=== PATIENT | male | born 1945 | race Caucasian/White ===

== ENCOUNTER 2023-09-25 14:02 | Inpatient (IN) ==
[2023-09-25 15:15] LABS: Hematocrit 24.7 % (38-53); Hemoglobin 8.1 g/dL (13.2-16.3); Mean Corpuscular Hemoglobin 31.1 pg (27-33); Mean Corpuscular Hgb Conc 32.8 g/dL (31-36); Mean Corpuscular Volume 94.8 fL (80-97); Mean Platelet Volume 8.4 fL (7.5-11.2); Platelet Count 162 10^3/uL (150-450); Red Cell Distribution Width 18.4 % (12-17); White Blood Count 26.1 10^3/uL (3.6-10.2)
[2023-09-25 15:28] LABS: INR 1.03 (0.83-1.13)
[2023-09-25 16:13] LABS: ALT 15 U/L (7-52); AST 15 U/L (13-39); Albumin 3.6 g/dL (3.2-5.2); Albumin/Globulin Ratio 1.7 (1-3); Alkaline Phosphatase 86 U/L (35-149); Anion Gap 7 mmol/L (2-16); Blood Urea Nitrogen 48 mg/dL (6-24); C Reactive Protein < 1.00 mg/L (<8.01); CO2 Carbon Dioxide 25 mmol/L (22-32); Chloride 103 mmol/L (101-111); Creatinine, Serum 0.88 mg/dL (0.67-1.17); Globulin 2.1 g/dL (2-4); Glucose 160 mg/dL (70-100); Lipase 45 U/L (11.0-82.0); Phosphorus 3.3 mg/dL (2.5-5.0); Sodium 135 mmol/L (135-145); Total Bilirubin 0.3 mg/dL (0.2-1.0); Total Protein 5.7 g/dL (6.4-8.9)
[2023-09-25 16:14] LABS: High Sens Troponin Baseline 8 pg/mL (<20)
[2023-09-25 16:20] LABS: ABS Basophils 0.1 10^3/uL (0.0-0.1); ABS Lymphocytes 1.3 10^3/uL (1.0-4.8); ABS Monocytes 0.8 10^3/uL (0.0-1.1); ABS Nucleated RBC 0.02 10^3/ul; Eosinophil % 0.1 %; Lymphocyte % 4.9 %; Nucleated Red Blood Cells % 0.1 %/100WBC (0.0-0.8)
[2023-09-25] MEDS: NS 0.9% 1000 ml BAG 1,000 ML IV ONE ×2 (16:47→17:53)
[2023-09-25 16:54] LABS: High Sensitivity Troponin 1 Hr 6 pg/mL (<20)
[2023-09-25 17:00] LABS: Urine Appearance Clear; Urine Bilirubin Negative (Negative); Urine Blood Negative (Negative); Urine Color Yellow; Urine Glucose 1+(50 mg/dL) (Negative); Urine Ketones Negative (Negative); Urine Nitrite Negative (Negative); Urine Protein Negative (Negative); Urine Specific Gravity 1.021 (1.002-1.030); Urine Urobilinogen Negative (Negative)
[2023-09-25] MEDS: Enoxaparin 40 MG/0.4 ML SYR SUBCUT SCH (21:14)
[2023-09-25] MEDS: Lactated Ringers 1000 ml BAG 1,000 ML IV SCH (21:15)
[2023-09-25] MEDS: Senna TAB 8.6 mg TAB PO SCH (23:02)
[2023-09-26 07:08] LABS: ABS Basophils 0.1 10^3/uL (0.0-0.1); ABS Lymphocytes 1.7 10^3/uL (1.0-4.8); ABS Monocytes 0.5 10^3/uL (0.0-1.1); ABS Neutrophils 13.7 10^3/uL (1.5-7.6); ABS Nucleated RBC 0.03 10^3/ul; Eosinophil % 0.1 %; Hematocrit 19.7 % (38-53); Hemoglobin 6.5 g/dL (13.2-16.3); Lymphocyte % 10.5 %; Mean Corpuscular Hemoglobin 31.5 pg (27-33); Mean Corpuscular Hgb Conc 33.2 g/dL (31-36); Mean Corpuscular Volume 94.9 fL (80-97); Mean Platelet Volume 8.8 fL (7.5-11.2); Nucleated Red Blood Cells % 0.2 %/100WBC (0.0-0.8); Platelet Count 131 10^3/uL (150-450); Red Blood Count 2.08 10^6/uL (4.06-5.63); Red Cell Distribution Width 18.6 % (12-17)
[2023-09-26 07:27] LABS: Calcium 7.9 mg/dL (8.6-10.3); Creatinine, Serum 0.86 mg/dL (0.67-1.17); Potassium 3.9 mmol/L (3.5-5.0); eGFR CKD-EPI 88.6 (>60)
[2023-09-26] MEDS: ABIRATERONE 250 MG PO SCH (08:43)
[2023-09-26 15:34] LABS: Hematocrit 19.7 % (38-53); Hemoglobin 6.6 g/dL (13.2-16.3); Mean Corpuscular Hemoglobin 30.3 pg (27-33); Mean Corpuscular Hgb Conc 33.4 g/dL (31-36); Mean Corpuscular Volume 90.9 fL (80-97); Mean Platelet Volume 8.4 fL (7.5-11.2); Platelet Count 108 10^3/uL (150-450); Red Blood Count 2.17 10^6/uL (4.06-5.63); Red Cell Distribution Width 19.9 % (12-17); White Blood Count 13.6 10^3/uL (3.6-10.2)
[2023-09-27 05:41] LABS: ABS Basophils 0.1 10^3/uL (0.0-0.1); ABS Lymphocytes 1.1 10^3/uL (1.0-4.8); ABS Monocytes 0.5 10^3/uL (0.0-1.1); ABS Neutrophils 11.4 10^3/uL (1.5-7.6); ABS Nucleated RBC 0.02 10^3/ul; Eosinophil % 0.1 %; Hematocrit 21.5 % (38-53); Hemoglobin 7.3 g/dL (13.2-16.3); Lymphocyte % 8.5 %; Mean Corpuscular Hemoglobin 30.5 pg (27-33); Mean Corpuscular Volume 89.6 fL (80-97); Mean Platelet Volume 8.7 fL (7.5-11.2); Nucleated Red Blood Cells % 0.1 %/100WBC (0.0-0.8); Platelet Count 107 10^3/uL (150-450); Red Cell Distribution Width 17.9 % (12-17); White Blood Count 13.2 10^3/uL (3.6-10.2)
[2023-09-27 05:50] LABS: Calcium 7.6 mg/dL (8.6-10.3); Creatinine, Serum 0.73 mg/dL (0.67-1.17); Potassium 3.7 mmol/L (3.5-5.0); eGFR CKD-EPI 93.1 (>60)
[2023-09-27 10:55] LABS: Hematocrit 19.2 % (38-53); Hemoglobin 6.6 g/dL (13.2-16.3)
[2023-09-27] MEDS ORDERED: Polyethylene Glycol 3350 17 GM PACKET PO PRN (16:34)
[2023-09-28 06:09] LABS: Hematocrit 17.9 % (38-53); Hemoglobin 6.2 g/dL (13.2-16.3); Mean Corpuscular Hemoglobin 29.9 pg (27-33); Mean Corpuscular Hgb Conc 34.3 g/dL (31-36); Mean Corpuscular Volume 87.3 fL (80-97); Red Blood Count 2.05 10^6/uL (4.06-5.63); Red Cell Distribution Width 18.4 % (12-17); White Blood Count 11.4 10^3/uL (3.6-10.2)
[2023-09-28 06:25] LABS: ABS Basophils 0.1 10^3/uL (0.0-0.1); ABS Lymphocytes 1.1 10^3/uL (1.0-4.8); ABS Monocytes 0.5 10^3/uL (0.0-1.1); ABS Neutrophils 9.7 10^3/uL (1.5-7.6); ABS Nucleated RBC 0.02 10^3/ul; Eosinophil % 0.1 %; Lymphocyte % 9.7 %; Mean Platelet Volume 8.5 fL (7.5-11.2); Nucleated Red Blood Cells % 0.2 %/100WBC (0.0-0.8); Platelet Count 98 10^3/uL (150-450)
[2023-09-28 06:41] LABS: Calcium 7.9 mg/dL (8.6-10.3); Creatinine, Serum 0.81 mg/dL (0.67-1.17); Potassium 3.4 mmol/L (3.5-5.0); eGFR CKD-EPI 90.2 (>60)
[2023-09-28] MEDS: PTO: Abiraterone 250 mg TAB (NF) PO SCH (07:46)
[2023-09-28] MEDS: NS 0.9% 1000 ml BAG 1,000 ML IV SCH (09:12)
[2023-09-28] MEDS: KCL 20 MEQ/100 ML IVPREMIX 20 MEQ/100 ML BAG IV SCH (09:12)
[2023-09-28] MEDS: Pantoprazole VIAL 40 MG VIAL IV SCH (11:23)
[2023-09-28] MEDS ORDERED: fentaNYL 100 mcg/2 ml 50 MCG/ML VIAL ONE (15:09)
[2023-09-28] MEDS ORDERED: Midazolam 10 mg/10 ml VIAL 1 mg/ml 10 ml VIAL (10 mg) ONE (15:09)
[2023-09-29 06:12] LABS: ABS Basophils 0.1 10^3/uL (0.0-0.1); ABS Lymphocytes 0.8 10^3/uL (1.0-4.8); ABS Monocytes 0.4 10^3/uL (0.0-1.1); ABS Neutrophils 9.8 10^3/uL (1.5-7.6); Eosinophil % 0.1 %; Hematocrit 24.9 % (38-53); Hemoglobin 8.5 g/dL (13.2-16.3); Lymphocyte % 7.5 %; Mean Corpuscular Hemoglobin 29.5 pg (27-33); Mean Corpuscular Hgb Conc 33.9 g/dL (31-36); Mean Corpuscular Volume 87.1 fL (80-97); Mean Platelet Volume 8.4 fL (7.5-11.2); Platelet Count 93 10^3/uL (150-450); Red Blood Count 2.86 10^6/uL (4.06-5.63); Red Cell Distribution Width 19.2 % (12-17); White Blood Count 11.1 10^3/uL (3.6-10.2)
[2023-09-29 06:47] LABS: Calcium 7.3 mg/dL (8.6-10.3); Creatinine, Serum 0.79 mg/dL (0.67-1.17); Potassium 3.9 mmol/L (3.5-5.0); eGFR CKD-EPI 90.9 (>60)
[2023-09-29 10:05] VITALS: BP 98/59
== END 2023-09-29 11:15 | disposition home or self-care (01) | DRG 812 ==
LOC: ED 14:02 → EDHOLD 14:02 → SUATTDRO 20:34 → SSU 20:56 → MED 09-29 01:05
PROVIDERS: ADMIT Internal Medicine; ATTEND Internal Medicine